=== PATIENT | male | born 1965 | race Two or more races ===

== ENCOUNTER 2019-07-02 15:02 | Observation (INO) | payer OTHER ==
[2019-07-02 16:08] LABS: ABS Eosinophils 0.1 10^3/ul (0-0.6); ABS Lymphocytes 1.9 10^3/ul (1.0-4.8); ABS Monocytes 0.4 10^3/ul (0-0.8); ABS Neutrophils 2.8 10^3/ul (1.5-7.7); Hematocrit 36 % (42-52); Hemoglobin 12.4 g/dL (14.0-18.0); Lymphocyte % 36.6 %; Mean Corpuscular HGB Conc 35 g/dL (31-36); Mean Corpuscular Hemoglobin 28 pg (27-31); Mean Corpuscular Volume 82 fL (80-94); Mean Platelet Volume 6.8 fL (7.4-10.4); Platelet Count 219 10^3/uL (150-450); Red Blood Count 4.38 10^6 /uL (4.18-5.48); Red Cell Distribution Width 14 % (10-15); White Blood Count 5.2 10^3/uL (3.5-10.8)
[2019-07-02 16:28] LABS: Troponin I 0.01 ng/mL (<0.04)
[2019-07-02 16:31] LABS: Albumin 4.4 g/dL (3.2-5.2); Albumin/Globulin Ratio 2.3 (1-3); BUN/Creatinine Ratio 26.6 (8-20); Calcium 9.1 mg/dL (8.6-10.3); EGFR African American 123.7 (>60); EGFR Non-African American 102.2 (>60); Globulin 1.9 g/dL (2-4); Potassium 4.3 mmol/L (3.5-5.0); Total Bilirubin 0.3 mg/dL (0.2-1.0); Total Protein 6.3 g/dL (6.4-8.9)
--- NOTE | 2019-07-02 16:38 | ED ---
HPI Cardiac - HPI Summary HPI Summary: Patient is a 54 y/o M presenting to ED via EMS from [place] with complaints of palpitations and chest pain that onset around 1300 today, 07/02/19. Patient reports radiation of pain to shoulders, jaw, and neck. He notes that this is the fourth episode in the past six months. He notes second and third episode was six and three weeks ago respectively. Patient states that he went to nursing unit for most recent episode and was instructed to return if he had onset of another episode. Today, patient's HR was noted to be 150-160. EMS administered 324 mg ASA, 6 mg adenosine, patient converted to NSR afterwards. He smokes 3-4 cigarettes a day. 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 Hx of ascending aortic aneurysm is noted. Patient does not report fever, chills, erythema of eyes, sore throat, SOB, cough, abdominal pain, N/V, dysuria, hematuria, myalgia, edema, rash and dizziness. On triage, pain is rated 1/10, nothing is noted to aggravate/alleviate Sx. Home medications and allergies are reviewed. - History of Current Complaint Chief Complaint: EDDysrhythmPalp Stated Complaint: HEART PALPATIONS PER PT Time Seen by Provider: 07/02/19 15:31 Hx Obtained From: Patient Onset/Duration: Started Hours Ago, Resolved Timing: Intermittent Current Severity: Mild Pain Intensity: 1 Pain Scale Used: 0-10 Numeric Chest Pain Radiates: Yes Chest Pain Radiates To:: Shoulder, Jaw, Neck Aggravating Factor(s): Nothing Alleviating Factor(s): Medication Associated Signs and Symptoms: Positive: Chest Pain, Palpitations, Other: - does not report erythema of eyes, sore throat, dysuria, hematuria, myalgia, rash and dizziness. Negative: Dizziness, Shortness of Breath, Swelling, Fever, Chills, Nausea, Cough, Productive Cough, Nonproductive Cough, Abdominal Pain, Calf Pain/Swelling, Vomiting - Allergy/Home Medications Allergies/Adverse Reactions: Allergies Allergy/AdvReac Type Severity Reaction Status Date / Time No Known Allergies Allergy Verified 07/02/19 15:20 Home Medications: Home Medications Bisacodyl EC TAB* [Dulcolax EC TAB*] 5 mg PO DAILY PRN 07/02/19 [History Confirmed 07/02/19] Docusate CAP* [Colace Cap*] 100 mg PO TID PRN 07/02/19 [History Confirmed ] Naproxen TAB* [Naprosyn 250 mg TAB*] 500 mg PO BID 07/02/19 [History Confirmed 07/02/19] Polycarbophil 500mg 1 tab PO BID PRN 07/02/19 [History Confirmed 07/02/19] Polyethylene Glycol 3350* [Miralax*] 17 gm PO BID PRN 07/02/19 [History Confirmed 07/02/19] PMH/Surg Hx/FS Hx/Imm Hx Cardiovascular History: Reports: Other Cardiovascular Problems/Disorders - AAA Sensory History: Denies: Hx Legally Blind, Hx Deafness Opthamlomology History: Denies: Hx Legally Blind EENT History: Denies: Hx Deafness Infectious Disease History: No Infectious Disease History: Denies: Traveled Outside the [place] in Last 30 Days - Family History Known Family History: Negative: Diabetes - Social History Alcohol Use: None Substance Use Type: Reports: None Smoking Status (MU): Former Smoker Review of Systems Negative: Fever, Chills Negative: Erythema Negative: Sore Throat Positive: Palpitations, Chest Pain Negative: Shortness Of Breath, Cough Negative: Abdominal Pain, Vomiting, Nausea Negative: dysuria, hematuria Negative: Myalgia, Edema Negative: Rash Neurological: Other - negative - dizziness All Other Systems Reviewed And Are Negative: Yes Physical Exam - Summary Physical Exam Summary: Constitutional: Well-developed, Well-nourished, Alert. (-) Distressed Skin: Warm, Dry HENT: Normocephalic; Atraumatic Eyes: Conjunctiva normal Neck: Musculoskeletal ROM normal neck. (-) JVD, (-) Stridor, (-) Tracheal deviation Cardio: Rhythm regular, rate normal, Heart sounds normal; Intact distal pulses; The pedal pulses are 2+ and symmetric. Radial pulses are 2+ and symmetric. (-) Murmur Pulmonary/Chest wall: Effort normal. (-) Respiratory distress, (-) Wheezes, (-) Rales Abd: Soft, (-) tenderness, (-) Distension, (-) Guarding, (-) Rebound Musculoskeletal: (-) Edema Lymph: (-) Cervical adenopathy Neuro: Alert, Oriented x3 Psych: Mood and affect Normal Triage Information Reviewed: Yes Vital Signs On Initial Exam: Initial Vitals Temp Pulse Resp BP Pulse Ox 97.5 F 66 16 110/73 97 07/02/19 15:17 07/02/19 15:17 07/02/19 15:17 07/02/19 15:17 07/02/19 15:17 Vital Signs Reviewed: Yes Diagnostics - Vital Signs Vital Signs Temp Pulse Resp BP Pulse Ox 07/02/19 15:17 97.5 F 66 16 110/73 97 - Laboratory Lab Results: Lab Results 07/02/19 07/02/19 07/02/19 Range/Units 15:55 15:55 15:55 WBC 5.2 (3.5-10.8) 10^3/uL RBC 4.38 (4.18-5.48) 10^6 /uL Hgb 12.4 L (14.0-18.0) g/dL Hct 36 L (42-52) % MCV 82 (80-94) fL MCH 28 (27-31) pg MCHC 35 (31-36) g/dL RDW 14 (10-15) % Plt Count 219 (150-450) 10^3/uL MPV 6.8 L (7.4-10.4) fL Neut % (Auto) 53.5 % Lymph % (Auto) 36.6 % Camas % (Auto) 7.6 % Eos % (Auto) 2.0 % Baso % (Auto) 0.3 % Absolute Neuts (auto) 2.8 (1.5-7.7) 10^3/ul Absolute Lymphs (auto) 1.9 (1.0-4.8) 10^3/ul Absolute Monos (auto) 0.4 (0-0.8) 10^3/ul Absolute Eos (auto) 0.1 (0-0.6) 10^3/ul Absolute Basos (auto) 0.0 (0-0.2) 10^3/ul Absolute Nucleated RBC 0.0 10^3/ul Nucleated RBC % 0.0 Sodium Pending Potassium Pending Chloride Pending Carbon Dioxide Pending Anion Gap Pending BUN Pending Creatinine Pending Est GFR ( Amer) Pending Est GFR (Non-Af Amer) Pending BUN/Creatinine Ratio Pending Glucose Pending Lactic Acid 1.0 (0.5-2.0) mmol/L Calcium Pending Magnesium Pending Total Bilirubin Pending AST Pending ALT Pending Alkaline Phosphatase Pending Troponin I 0.01 (<0.04) ng/mL Total Protein Pending Albumin Pending Globulin Pending Albumin/Globulin Ratio Pending TSH Pending Result Diagrams: 07/02/19 15:55 07/02/19 15:55 Lab Statement: Any lab studies that have been ordered have been reviewed, and results considered in the medical decision making process. - EKG 1520 Cardiac Rate: NL - rate of 73 BPM EKG Rhythm: Sinus Rhythm Summary of EKG Findings: EKG showed NSR with rate of 73 BPM, no STEMI. This EKG was reviewed and interpreted by Dr. Bonner. 1645 Cardiac Rate: Bradycardia - rate of 57 BPM EKG Rhythm: Sinus Bradycardia Summary of EKG Findings: EKG showed sinus bradycardia with rate of 57 BPM, no STEMI. This EKG was reviewed and interpreted by Dr. Bonner. Disposition - Course Course Of Treatment: Patient is a 54 y/o M presenting to ED via EMS from [place] with complaints of palpitations and chest pain that onset around 1300 today, 07/02/19. Patient reports radiation of pain to shoulders, jaw, and neck. He notes that this is the fourth episode in the past six months. He notes second and third episode was six and three weeks ago respectively. Patient states that he went to nursing unit for most recent episode and was instructed to return if he had onset of another episode. Today, patient's HR was noted to be 150-160. EMS administered 324 mg ASA, 6 mg adenosine, patient converted to NSR afterwards. First EKG showed NSR with rate of 73 BPM, no STEMI. Second EKG showed sinus bradycardia with rate of 57 BPM, no STEMI. Bloodwork was obtained. Abnormal values include Hgb 12.4, Hct 36, MPV 6.8, BUN/creatinine ratio 26.6, glucose 115, total protein 6.3, globulin 1.9. First trop was negative. Patient is signed out to Dr. Falcon at 07/02/19 1900 shift change pending second trop of this patient. - Diagnoses Provider Diagnoses: SVT (supraventricular tachycardia) Discharge ED - Sign-Out/Discharge Documenting (check all that apply): Sign-Out Patient Signing out patient TO: Taisha Falcon Patient Received Moderate/Deep Sedation with Procedure: No - Discharge Plan Condition: Stable Patient Education Materials: Supraventricular Tachycardia (ED) Referrals: Rogelio Vazquez MD [Medical Doctor] - 3 Days Additional Instructions: RETURN TO THE EMERGENCY DEPARTMENT FOR CHANGING OR WORSENING SYMPTOMS. FOLLOW UP WITH CRM CAMPAIGN MANAGER WITHIN THREE DAYS. - Attestation Statements Document Initiated by Scribe: Yes Documenting Scribe: LANE RAMOS Provider For Whom Scribe is Documenting (Include Credential): CARSON BONNER MD Scribe Attestation: ILANE, scribed for CARSON BONNER MD on 07/02/19 at 2006. Status of Scribe Document: Ready
[2019-07-02 17:11] LABS: TSH (Thyroid Stimulating Horm) 1.61 mcIU/mL (0.34-5.60)
--- NOTE | 2019-07-02 20:00 | ED ---
Progress - Progress Note Progress Note: This pt is a sign out to Dr. Falcon from Dr. Bonner at shift change 07/02/191899 pending a 2nd Troponin. If her results are baseline then she will be discharged home with the discharged with the paperwork completed by Dr. Bonner. Re-Evaluation - Re-Evaluation First Eval Re-Evaluation Time: 20:15 Change: Worse Comment: The pt was re-evaluated at 2014 and stated that he had no CP. He was referred to the Hospitalist, Dr. Ribera, for possible admission. The pt's 2nd Troponin was .04. Course/Dx - Course Course Of Treatment: This pt is a sign out to Dr. Falcon from Dr. Bonner at shift change 07/02/191899 pending a 2nd Troponin. If his results are baseline then she will be discharged home with the discharged with the paperwork completed by Dr. Bonner. The pt was re-evaluated at 2014 and stated that he had no CP. He was referred to the Hospitalist, Dr. Ribera, for admission. The pt' s 2nd Troponin was .04. The pt will be admitted with a Dx of elevated troponin and SVT. - Diagnoses Provider Diagnoses: SVT (supraventricular tachycardia), Elevated troponin - Provider Notifications Discussed Care Of Patient With: Graham Ribera Time Discussed With Above Provider: 20:05 Instructed by Provider To: Admit As Inpatient Admit/Transition Orders Completed By ED Provider: Yes Discharge ED - Sign-Out/Discharge Documenting (check all that apply): Patient Departure - admitted Patient Received Moderate/Deep Sedation with Procedure: No - Discharge Plan Condition: Stable Disposition: ADMITTED TO [facility] - Billing Disposition and Condition Condition: STABLE Disposition: Admitted to [facility] - Attestation Statements Document Initiated by Scribe: Yes Documenting Scribe: Rommel Aviles Provider For Whom Carol Annibtheresa is Documenting (Include Credential): Taisha Falcon MD Scribe Attestation: Rommel Sousa scribed for Taisha Falcon MD on 07/03/19 at 0504. Scribe Documentation Reviewed: Yes Provider Attestation: The documentation as recorded by the Rommel lawson accurately reflects the service I personally performed and the decisions made by me, Taisha Falcon MD Status of Scribe Document: Viewed
[2019-07-02 20:07] LABS: Troponin I 0.04 ng/mL (<0.04)
[2019-07-02] MEDS ORDERED: Docusate CAP* 100 MG PO PRN (23:06)
[2019-07-02] MEDS ORDERED: Polyethylene Glycol 3350* 17 GM PACKET PO PRN (23:06)
[2019-07-02] MEDS ORDERED: Bisacodyl EC TAB* 5 MG PO PRN (23:06)
[2019-07-02] MEDS ORDERED: NS 0.9% 1000 ML** 1,000 ML IV SCH (23:15)
[2019-07-02 23:38] LABS: Troponin I 0.04 ng/mL (<0.04)
--- NOTE | 2019-07-03 00:47 | HP ---
CC: KAUR Marroquin* ADMISSION HISTORY AND PHYSICAL: DATE OF ADMISSION: 07/02/19. CHIEF COMPLAINT: Chest pain. HISTORY OF PRESENT ILLNESS: This is a 54-year-old male with past medical history of ascending aortic aneurysm which has been stable over the last 2 years at 4.4 cm, who was incarcerated around November and noticed over the last month and a half that he has been having sudden onset chest pain, which is lasting about an hour to 2 hours, starts around in his anterior chest, radiating to his jaw and neck, and this is his third episode and he got worried he was also having some palpitations along with this chest pain. When EMS arrived, he was noted to be in SVT. After giving 6 mg of adenosine, the patient 's chest pain and his entire palpitation symptoms had resolved completely; however, he did have some mild troponin elevation. So, he is being admitted to monitor for the elevated troponin and for his recent SVT. PAST MEDICAL HISTORY: As mentioned, he has a stable ascending aortic aneurysm which is being monitored over the last 2 years. Initially was noted to be 4.4 cm and then repeat one was showing 4.5 and most recent scan showed 4.4 again. He also has history of bipolar disorder for which he takes Wellbutrin, and severe constipation for which he is on multiple stool softeners. PAST SURGICAL HISTORY: Includes tonsillectomy. HOME MEDICATIONS: The patient is currently on: 1. Wellbutrin 200 mg oral daily. 2. MiraLAX 17 g packet p.o. b.i.d. p.r.n. 3. Polycarbophil 500 mg p.o. b.i.d. p.r.n. 4. Naproxen 500 mg p.o. b.i.d. p.r.n. 5. Colace 100 mg p.o. t.i.d. p.r.n. 6. Dulcolax 5 mg p.o. daily p.r.n. ALLERGIES: The patient has no known drug allergies. FAMILY HISTORY: His father at age 85 and few years before his , he required a cardiac stenting, but otherwise healthy rest of his life. Mother is alive at age 83 and is very healthy as well. SOCIAL HISTORY: The patient is an active smoker, used to smoke about a pack a day for 30 years; however, since incarceration in November, he is down to 3 to 4 cigarettes a day. He also had a history of alcohol use that he used to use about a bottle of vodka in a week, but since November he was incarcerated, he has not had any drink and denies any withdrawal. He has had a drug abuse history in the past. He has tried oxycodone abuse and heroin, which he used to snort but denied any injections and he has been tested for HIV and hepatitis after incarceration and was noted to be negative. Currently the patient is incarcerated and he is to be discharged from the prison in the next week. REVIEW OF SYSTEMS: A 14-point review of systems did not reveal any new information other than what is mentioned in the HPI. PHYSICAL EXAMINATION GENERAL: The patient is awake, alert, oriented, did not appear to be in any acute respiratory distress. VITAL SIGNS: BP was noted to be 118/81, heart rate 53, respiration rate 16, saturating 99% on room air, temperature was documented at 97.5. HEAD AND NECK: Atraumatic, normocephalic. Bilateral pupils are reactive. Oral mucosa was moist. Neck is supple. No jugular venous distention. LUNGS: Clear to auscultation bilaterally. No wheezing, rhonchi, or rales. HEART: S1, S2. Regular rate and rhythm. ABDOMEN: Soft, nontender, nondistended. EXTREMITIES: No cyanosis, clubbing, or edema. DIAGNOSTIC STUDIES/LAB DATA: CBC was unremarkable except for mild anemia with hemoglobin of 12.4, hematocrit of 36. Comprehensive metabolic panel was unremarkable except for second troponin being minimally elevated at 0.04. EKG showed sinus bradycardia at 57 beats per minute and the repeat EKG showed sinus rhythm at 73 beats per minute, otherwise no ST elevation was noted. IMPRESSION: This is a 54-year-old gentleman with ascending aortic aneurysm, which is being monitored, here with an episode of chest pain, likely secondary to the supraventricular tachycardia and noted to have minimally elevated troponin. ASSESSMENT AND PLAN: 1. Chest pain likely secondary to supraventricular tachycardia; however, given the minimally elevated troponin, we will get an echocardiogram and a stress test in the morning and we will consider Cardiology consultation regarding further treatment plan for the patient. 2. History of ascending aortic aneurysm, which is stable. 3. History of bipolar disorder, restarted Wellbutrin. 4. History of chronic constipation, restarted stool softeners. 5. DVT prophylaxis with sequential compression device. [id number]/[facility] #: [id number] [facility] HOSPITALMercedes
[2019-07-03 04:56] LABS: ABS Eosinophils 0.2 10^3/ul (0-0.6); ABS Lymphocytes 2.3 10^3/ul (1.0-4.8); ABS Monocytes 0.4 10^3/ul (0-0.8); ABS Neutrophils 3.3 10^3/ul (1.5-7.7); Eosinophil % 3.3 %; Hematocrit 38 % (42-52); Mean Corpuscular HGB Conc 34 g/dL (31-36); Mean Corpuscular Hemoglobin 28 pg (27-31); Mean Corpuscular Volume 83 fL (80-94); Mean Platelet Volume 6.6 fL (7.4-10.4); Platelet Count 211 10^3/uL (150-450); Red Blood Count 4.64 10^6 /uL (4.18-5.48); Red Cell Distribution Width 14 % (10-15); White Blood Count 6.1 10^3/uL (3.5-10.8)
[2019-07-03 05:08] LABS: BUN/Creatinine Ratio 23.2 (8-20); Calcium 8.9 mg/dL (8.6-10.3); EGFR African American 118.5 (>60); EGFR Non-African American 97.9 (>60); HDL Cholesterol 39.4 mg/dL; Potassium 3.8 mmol/L (3.5-5.0)
--- NOTE | 2019-07-03 08:57 | ECHO ---
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 History: Supraventricular tachycardia. Aortic aneurysm. Conclusions Summary: - Left ventricle: The cavity size is normal. Wall thickness is mildly to moderately increased. Systolic function is normal. The estimated ejection fraction is 50-55%. Wall motion is normal; there are no regional wall motion abnormalities. - Normal cardiac chamber sizes. - Functionally benign heart valves. - Aortic root: The aortic root is moderately dilated. - Ascending aorta: The ascending aorta is moderately dilated. - Aortic arch: The aortic arch is mildly dilated. - There is no prior echocardiogram available to compare with at this time. Study data: Transthoracic echocardiogram. Procedure: Transthoracic echocardiography was performed. Image quality was good. Complete 2D, spectral Doppler, and color flow Doppler. Location: Bedside. Patient status: Inpatient. Patient room number: 451. Rhythm: Normal sinus rhythm. Findings Left ventricle: The cavity size is normal. Wall thickness is mildly to moderately increased. Systolic function is normal. The estimated ejection fraction is 50-55%. Wall motion is normal; there are no regional wall motion abnormalities. There is no consistent Doppler evidence of clinically significant diastolic dysfunction. Right ventricle: The cavity size is normal. Systolic function is normal. Left atrium: The atrium is normal in size. Right atrium: The atrium is mildly dilated. Mitral valve: The leaflets are mildly thickened. There is no evidence of stenosis. There is trace regurgitation. Aortic valve: The valve is trileaflet. The leaflets are mildly thickened. There is no evidence of stenosis. There is trace regurgitation. Tricuspid valve: The leaflets are mildly thickened. There is trace to mild regurgitation. Pulmonic valve: The leaflets are normal thickness. There is no evidence of stenosis. There is no significant regurgitation. Aorta: Aortic root: The aortic root is moderately dilated. Ascending aorta: The ascending aorta is moderately dilated. Aortic arch: The aortic arch is mildly dilated. Pericardium: There is no significant pericardial effusion. Pulmonary arteries: The main pulmonary artery is normal-sized. Systolic pressure is within the normal range. Systemic veins: Inferior vena cava: The vessel is normal in size. There is (>= 50%) respiratory change in the IVC dimension. Measurements Left ventricle Value Ref Aortic valve Value Ref FANTASMA, LAX 4.8 cm 4.2 - 5.8 Sunil diam, ED 2.3 cm ----- ESD, LAX 3.0 cm 2.5 - 4.0 Peak v, S 0.95 m/sec ----- FS, LAX 39 % 25 - 43 VTI, S 23.2 cm ----- PW, ED, LAX (H) 1.2 cm 0.6 - 1.0 Mean grad, S 2.0 mm Hg ----- EF 69 % 52 - 72 Peak grad, S 4.0 mm Hg ----- E', lat sunil, TDI (L) 3.7 cm/sec >=10.0 CHUCKY, VTI 3.62 cm^2 --- -- E/e', lat sunil, 11 CHUCKY, Vmax 4.33 cm^2 ----- TDI E', med sunil, TDI (L) 5.0 cm/sec >=7.0 Mitral valve Value Ref E/e', med sunil, 8 Peak E 0.42 m/sec ----- TDI Peak A 0.57 m/sec ----- E', avg, TDI 4.4 cm/sec Decel time 449 ms ----- E/e', avg, TDI 10 <=14 Peak E/A ratio 0.7 --- -- LVOT Value Ref Pulmonic valve Value Ref Diam, S 2.40 cm Peak v, S 0.61 m/sec ----- Area 4.5 cm^2 Peak grad, S 1.0 mm Hg ----- Peak carly, S 0.91 m/sec Mean grad, S 1 mm Hg Tricuspid valve Value Ref SV 84 ml TR peak v 2.3 m/sec <=2.8 SV/bsa 46 ml/m^2 Peak RV-RA grad, S 21 mm Hg ----- Ventricular septum Value Ref Aortic root Value Ref IVS, ED (H) 1.5 cm 0.6 - 1.0 Root diam (H) 4.2 cm <4.0 Right ventricle Value Ref Ascending aorta Value Ref FANTASMA, LAX 2.9 cm AAo AP diam, S 4.5 cm ----- FANTASMA minor ax, A4C 3.1 cm 1.9 - 3.5 mid Aortic arch Value Ref Pressure, S 29 mm Hg Arch diam 3.6 cm ----- Left atrium Value Ref Decending aorta Value Ref AP dim, ES 3.60 cm 3.00 - Kathe peak carly 0.45 m/sec ----- 4.00 ML dim, A4C 4.2 cm Pulmonary artery Value Ref SI dim, A4C 4.9 cm Pressure, S 28.0 mm Hg ----- Vol/bsa, ES, A/L 26 ml/m^2 16 - 34 Inferior vena cava Value Ref Right atrium Value Ref Diam 1.9 cm ----- SI dim, ES 4.6 cm 3.4 - 5.3 ML dim, ES, A4C (H) 4.5 cm 2.6 - 4.4 Estimated RAP 8 mm Hg Legend: (L) and (H) jovita values outside specified reference range. Prepared and electronically signed by Rogelio Vazquez MD 07/03/2019 08:56
[2019-07-03] MEDS ORDERED: buPROPion SR TAB.SR* 200 MG PO SCH (09:00)
[2019-07-03] MEDS ORDERED: Aspirin EC TAB* 325 MG PO SCH (09:00)
[2019-07-03] MEDS ORDERED: Aminophylline IV* 25 MG/ML 10 ML VIAL ONE (10:43)
[2019-07-03] MEDS ORDERED: Regadenoson* 0.4 MG/5 ML SYRINGE ONE (10:43)
[2019-07-03 15:20] LABS: Urine Benzodiazepine Screen None Detected (None Detect); Urine Opiates Screen None Detected (None Detect)
[2019-07-03 18:08] VITALS: BP 147/86
--- NOTE | 2019-07-03 19:50 | CONS ---
CC: Dr. Otto Lynn, [place], [place] * INTERVENTIONAL CARDIOLOGY CONSULT NOTE: DATE OF CONSULT: 07/03/19 PRIMARY BUSINESS LAW INSTRUCTOR: Dr. Otto Lynn, [place], [place], telephone # [phone]. HISTORY OF PRESENT ILLNESS: A 54-year-old male, inmate, brought to the ER because of prolonged chest pain with SVT. Interventional cardiology was consulted because of an abnormal myocardial perfusion scan. He is in generally good health, exercises regularly, was incarcerated in the beginning of the year. Prior to that, he had no cardiac symptoms, but was being followed for an ascending aortic aneurysm, which was apparently stable at approximately 4.4 cm. He does recall having had a stress test a number of years ago and believes it was normal. He does recall being told that he had some EKG changes when he was processed at [facility], but does not know details. In the past 6 months, he has had 3 episodes of chest pain accompanied by palpitations lasting up to 2 hours. The last one precipitated his transfer here and admission. According to the hospital records, when EMS arrived at [place], this time, he was in SVT and converted with adenosine. I do not have a copy of his rhythm strips or any other documentation. Since being here, he has been pain-free and without arrhythmias. He had a myocardial perfusion Lexiscan today, which reported an anterior apical partially reversible defect with a calculated EF of 42%. His echocardiogram, although initially read as normal, on subsequent review suggests probable distal septal and apical wall motion abnormality with an LVEF of 45% to 50%. He has no history of heart failure symptoms or syncope. PAST MEDICAL HISTORY: Stable ascending aortic aneurysm, being followed in [place], and history of bipolar disorder. PREHOSPITAL MEDICATIONS: Apparently only Naprosyn p.r.n. ALLERGIES: None. FAMILY HISTORY: Father had heart disease in his 80s. SOCIAL HISTORY: He is a smoker. Since incarceration, he is only smoking 3 to 4 cigarettes per day. REVIEW OF SYSTEMS: Detailed in the H and P. PHYSICAL EXAM: He is a healthy-appearing, well-developed, muscular male. His blood pressure today is 129/79, heart rate in the 50s. His lungs are clear, JVP is normal, as are carotid upstrokes. He has no audible carotid bruits. HEENT: Unremarkable. Cardiac Exam: I do not hear any aortic insufficiency, no systolic murmur or gallop. Rhythm regular. Abdomen: Soft, nontender. No bruit. I cannot feel the aorta. Extremities: Femoral pulses 2+, no bruits. Radial pulses 2+, pedal pulses 2+. He has no cyanosis, clubbing, or edema. Skin: Warm and perfused. Psych: He is oriented, appropriate, articulate. DIAGNOSTIC STUDIES/LAB DATA: CBC: Notable for mild anemia with hemoglobin of 12.4 on admission with normal indices. His troponin peaked at 0.04 from 0.01 and subsequently has decreased. His cholesterol is 127, triglycerides 61, LDL 75, HDL 39.4. Electrolytes and renal function are normal. His blood sugar is 84. Echo as above. Myocardial perfusion Lexiscan revealed an anterior apical partially reversible defect with an EF of 42%. EKG: Here, sinus rhythm and a QS pattern in V1 through V3 with T-wave inversion in aVL and V4 with nonspecific flattening in I and V5. He has small R waves in aVF. IMPRESSION: His echocardiogram, myocardial perfusion scan, and EKG are all consistent with an anteroseptal infarct, which is old. It is unclear to me whether he had these changes when he was followed prior to incarceration. My presumption is he did not since I suspect that would have led to further evaluation. In any case, he is asymptomatic. The only episodes that may have triggered the infarct are his episodes of palpitations with prolonged chest pain , the last one clearly did not produce his anterior apical infarct. He essentially has asymptomatic ischemia, except in the setting of supraventricular tachycardia with a prior infarct and mildly decreased left ventricular systolic function. He is to be [facility] in about 2 weeks and is planning to follow up with his signal worker helper in [place]. My recommendation to him is medical management for now. There is no compelling indication for cath currently. We discussed tobacco cessation. We will start him on a daily aspirin. He already has been started on a beta jenna for his supraventricular tachycardia. We will add a statin and p.r.n. nitroglycerin. From a cardiac perspective, he can be discharged. Thanks for the consultation. [id number]/[facility] #: [id number] DAVID
--- NOTE | 2019-07-05 23:17 | DS ---
CC: KAUR Marroquin * DISCHARGE SUMMARY: DATE OF ADMISSION: 07/02/19 DATE OF DISCHARGE: 07/03/19 PRIMARY CARE PROVIDER: KAUR Marroquin. MY ATTENDING WHILE IN THE HOSPITAL: Dr. Chi Pierce.* (DICTATED BY RENEE GALLEGOS) PRIMARY DISCHARGE DIAGNOSES: 1. Supraventricular tachycardia. 2. Chest pain. 3. History of myocardial infarction. SECONDARY DISCHARGE DIAGNOSES: 1. Stable ascending aortic aneurysm. 2. Bipolar disorder. 3. Chronic constipation. STUDIES DONE WHILE IN THE HOSPITAL: Transthoracic echocardiogram read as left ventricular chamber size is normal. EF of 50% to 55%. Normal right ventricular chamber sizes. Functionally benign heart valves. Ascending aorta and aortic root are mildly dilated. Nuclear medicine scan read as decreased ejection fraction with diffuse hypokinesia and apical dyskinesia that is reversible. Hypoperfusion of the anterior wall suggestive of ischemia consistent with previous infarct. MEDICATIONS AT DISCHARGE: 1. Bisacodyl 5 mg p.o. daily as needed. 2. Polyethylene glycol 17 g p.o. b.i.d. as needed. 3. Naproxen 500 mg p.o. b.i.d. 4. Docusate 100 mg p.o. t.i.d. as needed. 5. Polycarbophil 1 tab p.o. b.i.d. as needed. 6. Bupropion 200 mg p.o. daily. 7. Aspirin 81 mg p.o. daily. 8. Lipitor 5 mg p.o. daily. 9. Metoprolol succinate 25 mg p.o. daily. New medications on discharge: 1. Aspirin. 2. Lipitor. 3. Metoprolol. Medications discontinued at discharge: None. HOSPITAL COURSE: This is a brief summary of the patient's presentation. For more details, please see the history and physical from Dr. Graham Ribera on 07/02. In brief, the patient is a 54-year-old male with a past medical history significant for the above, who presented to the emergency department with chest pain radiating to his jaw and neck that have been recurrent. The patient, in the emergency department, had a CT and he was given adenosine, which resolved his symptoms completely. He had a slight troponin elevation and was recommended to have a stress test. The patient's echo was as above. The patient had a nuclear medicine scan, as above. The patient had no other episodes of SVT. His blood pressure remained stable. The patient was seen in consultation by Dr. Efrain Vallejo of Cardiology who stated that the patient's stress test results likely represented an old apical infarct with no obvious reversible perfusion defects. The patient was stable. The patient had no further chest pain. The patient was stable and amenable for discharge on . PHYSICAL EXAMINATION ON DAY OF DISCHARGE: General: The patient is a 54-year- old male, appears stated age, in no acute distress. Vital Signs: At the time of evaluation, temperature 97.8, pulse rate 60, respiratory rate 18, oxygen saturation 100% on room air, blood pressure 147/86. HEENT: Head is normocephalic, atraumatic. Sclerae are anicteric. No conjunctival injection. Nasal mucosa is moist. Oral mucosa is moist. No pharyngeal erythema, discharge or exudate. Neck: Supple, nontender. No lymphadenopathy. No carotid bruits auscultated. No JVD. Cardiac: Regular rate and rhythm. No clicks, murmurs, gallops or rubs. Pulses 2+ in the bilateral dorsalis pedis, posterior tibialis, and radial areas. Respiratory: Clear to auscultation bilaterally. No wheezes, rales or rhonchi. Good air exchange bilaterally. Abdomen: Soft, nontender, nondistended. Bowel sounds present and normoactive in all 4 quadrants. No hepatospleno-megaly. No abdominal bruits auscultated. No hepatojugular reflux. Genitourinary: No suprapubic or CVA tenderness. Skin : Clear, dry, and intact. No rash. Neuro: Cranial nerves II through XII are intact. No focal deficits. Alert and oriented x3. Psychiatric: Pleasant and cooperative. DISCHARGE PLAN BY PROBLEM: 1. History of previous OR, chest pain: The patient has no compelling evidence of reversible ischemia at this time. He does have evidence of an old infract. The patient will be started on Lipitor and aspirin for secondary prevention. The patient's chest pain was likely from underlying coronary artery disease exacerbated by his SVT. The patient does not need a cath at this time. The patient will follow up with outpatient operations intern in 10 days, as he states he was previously scheduled. 2. SVT: Continue patient on metoprolol. The patient had no recurrent episodes while in the hospital on the metoprolol. 3. Constipation: Continue outpatient medications. 4. Bipolar disorder: Continue Wellbutrin. 5. Discharge back to [facility]. CONDITION: Stable. TIME SPENT: Approximately 60 minutes were spent on the discharge of this patient, 30 of which were spent [id number] with the patient, obtaining history and physical and discussing treatment plan. RENEE GALLEGOS [id number]/[facility] #: [id number]
== END 2019-07-03 20:00 ==
LOC: ED 15:02 → EEVIPCON 23:01 → MEDTELE 23:01
PROVIDERS: ADMIT Internal Medicine; ATTEND Internal Medicine
DX: I47.1 Supraventricular tachycardia (principal); R07.9 Chest pain, unspecified; I25.2 Old myocardial infarction; I71.4 Abdominal aortic aneurysm, without rupture; F31.9 Bipolar disorder, unspecified; K59.09 Other constipation; Z79.82 Long term (current) use of aspirin; Z79.899 Other long term (current) drug therapy; R94.31 Abnormal electrocardiogram [ECG] [EKG]; R77.8 Other specified abnormalities of plasma proteins; R00.2 Palpitations; F17.210 Nicotine dependence, cigarettes, uncomplicated
CPT/HCPCS: 36415; 78452; 80048; 80053; 80061; 80307; 83036; 83605; 83735; 84443; 84484; 85025; 93005; 93017; 93306; 96360; 96361; 99283; A9270-GY; A9502; G0378; J0280; J2785